=== PATIENT | female | born 1990 | race African-American/Black ===

== ENCOUNTER 2017-10-31 18:35 | Emergency (ER) | payer SELFPAY ==
[2017-10-31 18:50] VITALS: BP 129/97
--- NOTE | 2017-10-31 19:06 | PHYS DOC ---
Adult General Chief Complaint Chief Complaint: HEADACHE HPI HPI Patient is a 26-year-old female presenting to the emergency department for evaluation of bilateral temporal headache that has been going on for 2 days straight and nothing has been helping her pain. She says that she has had migraine headaches since she is 14 years old and this feels the same as prior migraine headaches and she has had nausea and vomiting with it with photophobia but no fevers chills neck stiffness vision changes unilateral weakness numbness or tingling. She takes ibuprofen at home. She is in no obvious distress with normal vital signs. Review of Systems Review of Systems Constitutional: Denies fever or chills [] Eyes: Denies change in visual acuity, redness, or eye pain [] GI: Denies abdominal pain. + nausea, vomiting. No bloody stools or diarrhea [] Integument: Denies rash or skin lesions [] Neurologic: + headache. No focal weakness or sensory changes [] All other systems were reviewed and found to be within normal limits, except as documented in this note. Physical Exam Physical Exam Constitutional: Well developed, well nourished, no acute distress, non-toxic appearance. [] HENT: Normocephalic, atraumatic, bilateral external ears normal, oropharynx moist, no oral exudates, nose normal. [] Eyes: PERRLA, EOMI, conjunctiva normal, no discharge. [] Neck: Normal range of motion, no tenderness, supple, no stridor. [] Cardiovascular:Heart rate regular rhythm, no murmur [] Lungs & Thorax: Bilateral breath sounds clear to auscultation [] Abdomen: Bowel sounds normal, soft, no tenderness, no masses, no pulsatile masses. [] Neurologic: Alert and oriented X 3, normal motor function, normal sensory function, no focal deficits noted. [] EKG EKG [] Radiology/Procedures Radiology/Procedures [] Course & Med Decision Making Course & Med Decision Making Patient with headache that is typical of prior migraine headaches that she was given Toradol Benadryl Compazine along with IV fluids. Headache much improved and nausea is resolved and she was able tolerate fluids with no difficulty by mouth. Repeat neurologic exam is normal and she is requesting to go home so she 'll be discharged in stable condition and told to follow with primary care provider and/or a neurologist and come back to the ED sooner with any worsening pain fevers vomiting or other general concerns. Patient aware and agreeable with plan for discharge and verbalized understanding of the above instructions. Dragon Disclaimer Dragon Disclaimer This electronic medical record was generated, in whole or in part, using a voice recognition dictation system. Departure Departure: Impression: Primary Impression: Headache Disposition: HOME, SELF-CARE Condition: STABLE Referrals: PCP,MARCEL (PCP) ORLANDO CHUNG MD Patient Instructions: Migraine Headache Additional Instructions: USE IBUPROFEN AND BENADRYL FOR YOUR MIGRAINE TYPE HEADACHES. SEE A PCP AND/OR NEUROLOGIST FURTHER PRESCRIPTIONS MAY HELP YOU OUT. COME BACK TO THE ED WITH ANY NEW OR WORSENING CONCERNS. THANK YOU! Scripts Ondansetron (ZOFRAN ODT) 4 Mg Tab.rapdis 1 TAB SL Q8HRS, #10 TAB Prov: ELVI JOHNSON DO 10/31/17 Problem Qualifiers Primary Impression: Headache Headache type: unspecified Headache chronicity pattern: acute headache Intractability: not intractable Qualified Codes: R51 - Headache ELVI JOHNSON DO Oct 31, 2017 19:06
[2017-10-31] MEDS ORDERED: diphenhydrAMINE 50 MG/ML VIAL IVP ONE (19:30)
[2017-10-31] MEDS ORDERED: IV NORMAL SALINE 1,000ML 1,000 ML IV ONE (19:30)
[2017-10-31] MEDS ORDERED: PROCHLORPERAZINE 10 MG/2 ML VIAL. IV ONE (19:30)
[2017-10-31] MEDS ORDERED: KETOROLAC 30 MG/ML VIAL. IV ONE (19:30)
[2017-10-31 20:19] LABS: BASO % 0 % (0-3); EOS % 0 % (0-3); HEMATOCRIT 29.3 % (36.0-47.0); HEMOGLOBIN 9.8 g/dL (12.0-15.5); LYMPH # 0.6 x10^3/uL (1.0-4.8); LYMPH % 9 % (24-48); MEAN CORPUSCULAR HEMOGLOBIN 30 pg (25-35); MEAN CORPUSCULAR HGB CONC 34 g/dL (31-37); MEAN CORPUSCULAR VOLUME 91 fL (79-100); MONO # 0.7 x10^3/uL (0.0-1.1); MONO % 9 % (0-9); NEUT # 6.1 x10^3uL (1.8-7.7); NEUT % 82 % (31-73); PLATELET COUNT 260 x10^3/uL (140-400); RED BLOOD COUNT 3.23 x10^6/uL (3.50-5.40); RED CELL DISTRIBUTION WIDTH 14.3 % (11.5-14.5); WHITE BLOOD COUNT 7.4 x10^3/uL (4.0-11.0)
[2017-10-31 20:25] LABS: ALBUMIN 3.7 g/dL (3.4-5.0); ALBUMIN/GLOBULIN RATIO 0.9 (1.0-1.7); CALCIUM 8.5 mg/dL (8.5-10.1); CREATININE 0.9 mg/dL (0.6-1.0); GFR 91.6; MAGNESIUM 1.8 mg/dL (1.8-2.4); POTASSIUM 3.4 mmol/L (3.5-5.1); TOTAL BILIRUBIN 0.5 mg/dL (0.2-1.0)
[2017-10-31] MEDS ORDERED: ONDA4TAB10 SL (20:48)
== END 2017-10-31 21:00 | disposition home or self-care (01) ==
LOC: ER 18:35
DX: R51 Headache (principal); R11.2 Nausea with vomiting, unspecified; H53.143 Visual discomfort, bilateral
CPT/HCPCS: 36415; 80053; 83735; 85025; 96361; 96374; 96375; 99284; J0780; J1200; J1885; J7030